=== PATIENT | female | born 1980 | race Caucasian/White ===

== ENCOUNTER 2017-02-12 14:15 | Emergency (ER) | payer SELFPAY ==
--- NOTE | ~2017-02-12 | ER ---
PATIENT'S NAME: SHRUTI ADEN [facility] AGE: 36 Y [address] ROOM: [place] [address] LOCATION: ED ADMIT DATE: 02/12/2017 ER/Outpatient Report DISCHARGE DATE: 02/12/2017 FAMILY PHYSICIAN: PHYSICIAN, NO ATTENDING PHYSICIAN: Verito Ragyoza Time of Arrival: 1416 hours. Time of Evaluation: 1421 hours. CHIEF COMPLAINT: Illness. HISTORY OF PRESENT ILLNESS: The patient states she has had a sore throat, cough, congestion, shortness of breath, fatigue muscle aches since yesterday. States that she has had some chills off and on. States the cough is productive of a yellow type phlegm, has not taken any over the counter medications for illness. ALLERGIES: ON THE CHART AND REVIEWED BY ME. MEDICATIONS: On the chart and reviewed by me. PAST MEDICAL HISTORY: Benign. PAST SURGICAL HISTORY: Ovarian cyst, tubal ligation. SOCIAL HISTORY: She does smoke a pack per day and has for the last 30 years. Denies use of drugs and alcohol. REVIEW OF SYSTEMS: Negative other than those mentioned in the HPI. PHYSICAL EXAMINATION: VITAL SIGNS: She weighed 78.2 kg, blood pressure is 121/80, pulse of 101, respirations 16, temperature of 99.3 tympanic, O2 saturation is 99% on room air. GENERAL: She is awake, alert, and oriented x4. SKIN: [place], warm, and dry. RESPIRATIONS: Even and nonlabored. TMs are dull. Nasal is boggy. Oropharynx, slightly red posteriorly. PATIENT'S NAME: SHRUTI ADEN [facility] AGE: 36 Y [address] ROOM: [place] [address] LOCATION: [facility] ADMIT DATE: 02/12/2017 ER/Outpatient Report DISCHARGE DATE: 02/12/2017 FAMILY PHYSICIAN: PHYSICIAN, MAR ATTENDING PHYSICIAN: Verito Raygoza NECK: Supple. No lymphadenopathy. LUNGS: Sounds are clear. Does have a bit of expiratory wheeze that clears with coughing. HEART: Regular rate and rhythm. IMAGING: Chest x-ray was completed. No acute abnormality is seen. IMPRESSION: Viral upper respiratory illness. PLAN: Home, rest, fluids. Tylenol or ibuprofen for fever and discomfort. Prescription was written for William Kinney and prednisone. She is to follow up with her primary provider if symptoms persist or worsen. She verbalized understanding. JONATHAN MARTINEZ APRN FOR [facility]/konstantin /[id number] d: 02/12/[id number] t: 02/15/17 1501, OUTPATIENT REPORT
== END 2017-02-12 15:23 | disposition disaster alternative care site (69) ==
LOC: GMED 14:15
DX: J06.9 Acute upper respiratory infection, unspecified (principal); F17.210 Nicotine dependence, cigarettes, uncomplicated; Z98.51 Tubal ligation status; Z88.5 Allergy status to narcotic agent